=== PATIENT | female | born 1980 | race Caucasian/White ===

== ENCOUNTER → 2017-06-29 | Outpatient (REF) | payer OTHER | LOC: M LAB REF 18:42 | PROVIDERS: ATTEND Advanced Practice Midwife | DX: Z12.4 Encounter for screening for malignant neoplasm of cervix (principal); R87.610 Atypical squamous cells of undetermined significance on cytologic smear of cervix (ASC-US) ==

== ENCOUNTER → 2017-07-03 | Outpatient (CLI) | payer OTHER ==
--- NOTE | 2017-07-04 07:12 | REP ---
PELVIC ULTRASOUND: CLINICAL: Pelvic pain. TECHNIQUE: Transabdominal pelvic ultrasound followed by transvaginal examination for better evaluation of the endometrium and adnexa. COMPARISON: 05/06/2014. FINDINGS: The bladder is unremarkable and measures 9.2 x 7.8 x 13.7 cm. Heterogeneous anteverted uterus measures 6.9 x 3.0 x 3.8 cm. The endometrial complex measures 8.4 mm thickness. Anterior subserosal fibroid is identified measuring 9 mm maximal diameter. Small subcentimeter myometrial cysts are identified and nonspecific/incidental. The bilateral ovaries are normal in appearance and vascularity without torsion. Right ovary measures 3.2 x 1.9 x 2.6 cm; RI equals 0.65. Left ovary measures 2.6 x 1.3 x 2.0 cm; RI equals 0.57. No pelvic fluid or adnexa mass lesions. IMPRESSION: Essentially normal pelvic ultrasound. Anterior subserosal fibroid is identified measuring 9 mm maximal diameter. Signed by Stanley Terrell MD 07/07/2017 06:42 A
== END ==
LOC: M SMT 12:59
PROVIDERS: ATTEND Advanced Practice Midwife
DX: R10.2 Pelvic and perineal pain (principal)

== ENCOUNTER → 2017-07-04 | Outpatient (CLI) | payer OTHER ==
[2017-07-04 14:22] LABS: BASO # 0.1 10^3/uL (0.0-0.2); BASO % 0.6 % (0.0-1.0); EOS # 0.2 10^3/uL (0.0-0.50); EOS % 2.7 % (0.0-3.0); IMMATURE GRANULOCYTE % 0.4 % (0-0); LYMPH # 3.3 10^3/uL (1.5-4.5); LYMPH % 39.1 % (24.0-44.0); MEAN CORPUSCULAR HGB CONC 33.1 g/dl (32.0-36.5); MEAN CORPUSCULAR VOLUME 90.7 fl (80.0-96.0); MONO # 0.6 10^3/uL (0.0-0.8); MONO % 7.6 % (0.0-5.0); NEUTROPHILS # 4.2 10^3/uL (1.8-7.7); NEUTROPHILS % 49.6 % (36.0-66.0); PLATELET COUNT, AUTOMATED 331 10^3/uL (150-450); RED CELL DISTRIBUTION WIDTH 13.1 % (11.5-14.5)
[2017-07-04 14:40] LABS: FOLLICLE STIMULATING HORMONE 5.9 mIU/mL; LUTEINIZING HORMONE 3.2 mIU/mL
[2017-07-04 14:59] LABS: THYROXINE (T4) 10.1 UG/DL (4.5-12.0)
[2017-07-05 08:22] LABS: WHITE BLOOD COUNT 8.4 10^3/uL (4.0-10.0)
[2017-07-07 14:14] LABS: INSULIN FREE 17 uU/mL (.)
== END ==
LOC: M SMT 08:31
PROVIDERS: ATTEND Advanced Practice Midwife
DX: R63.5 Abnormal weight gain (principal); R53.83 Other fatigue

== ENCOUNTER → 2017-07-28 | Outpatient (REF) | payer OTHER | LOC: M SFHCADAM 09:46 | DX: Z92.29 Personal history of other drug therapy (principal) ==

== ENCOUNTER → 2017-08-02 | Outpatient (CLI) | payer OTHER | LOC: M EKG 13:37 | DX: F41.9 Anxiety disorder, unspecified (principal) | CPT/HCPCS: 93005 ==

== ENCOUNTER → 2017-08-03 | Outpatient (REF) | payer OTHER ==
[2017-08-03 19:57] LABS: ESTIMATED AVERAGE GLUCOSE 114 MG/DL (60-110); HEMOGLOBIN A1c 5.6 %
[2017-08-03 20:04] LABS: ALBUMIN 3.7 GM/DL (3.2-5.2); ALBUMIN/GLOBULIN RATIO 1.09 (1.00-1.93); ALKALINE PHOSPHATASE 67 U/L (45-117); ALT/SGPT 35 U/L (12-78); ANION GAP 6 MEQ/L (8-16); AST/SGOT 16 U/L (7-37); BILIRUBIN,TOTAL 0.3 MG/DL (0.2-1.0); BLOOD UREA NITROGEN 15 MG/DL (7-18); CARBON DIOXIDE LEVEL 28 MEQ/L (21-32); CHLORIDE LEVEL 104 MEQ/L (98-107); CREATININE FOR GFR 0.67 MG/DL (0.55-1.02); GLOMERULAR FILTRATION RATE > 60.0 (>60); GLUCOSE, FASTING 89 MG/DL (70-105); POTASSIUM SERUM 4.5 MEQ/L (3.5-5.1); SODIUM LEVEL 138 MEQ/L (136-145); TOTAL PROTEIN 7.1 GM/DL (6.4-8.2)
== END ==
LOC: M SFHCADAM 15:35
DX: R53.82 Chronic fatigue, unspecified (principal); R73.01 Impaired fasting glucose

== ENCOUNTER → 2018-02-05 | Outpatient (CLI) | payer OTHER | LOC: M RAD 09:31 | DX: R22.9 Localized swelling, mass and lump, unspecified (principal) | CPT/HCPCS: 76536 ==

== ENCOUNTER 2018-02-16 23:13 | Emergency (ER) | payer OTHER ==
[2018-02-17] MEDS: FUROSEMIDE 20 MG TAB PO (00:45)
== END 2018-02-17 01:39 | disposition home or self-care (01) ==
LOC: M ED 23:13
DX: R21 Rash and other nonspecific skin eruption (principal); R60.0 Localized edema; Z87.891 Personal history of nicotine dependence; Z88.0 Allergy status to penicillin; Z88.8 Allergy status to other drugs, medicaments and biological substances
CPT/HCPCS: 99283

== ENCOUNTER 2018-09-17 07:27 | Day surgery (SDC) | payer OTHER ==
[~2018-09-17] VITALS: Ht 165.1 cm; Wt 96.2 kg
[2018-09-17 07:27] LABS: HEMATOCRIT 39.1 % (36.0-47.0); HEMOGLOBIN 13.2 g/dl (12.0-15.5); MEAN CORPUSCULAR HEMOGLOBIN 29.5 pg (27.0-33.0); MEAN CORPUSCULAR HGB CONC 33.8 g/dl (32.0-36.5); MEAN CORPUSCULAR VOLUME 87.3 fl (80.0-96.0); PLATELET COUNT, AUTOMATED 295 10^3/uL (150-450); RED BLOOD COUNT 4.48 10^6/uL (4.00-5.40); WHITE BLOOD COUNT 6.9 10^3/uL (4.0-10.0)
[~2018-09-17 07:27] MED LIST: BUPIVACAINE HCL 0.25% 10 ML VIAL As Ordered ONE; IBUP80TA PO; LASI20TA3 PO; LIDOCAINE 2% INJ 100 MG/5 ML SDV (FOR ANES.) As Ordered ONE; METHYLENE BLUE 0.5% (5MG/ML) 10 ML AMP (PROVAYBLUE)(Q9968 PER 1MG) As Ordered ONE; METOCLOPRAMIDE INJ 10MG/2ML VIAL (J2765) As Ordered ONE; MIDAZOLAM INJ 2 MG/2 ML VIAL (J2250) As Ordered ONE; ONDANSETRON 4MG/2ML VIAL (J2405) As Ordered ONE; PROPOFOL 200 MG/20 ML VIAL As Ordered ONE; ROCURONIUM BROMIDE 50 MG/5 ML VIAL As Ordered ONE; ZYRTTAB8 PO; ceFAZolin 2 GM/D5W 50 ML IV BAG (J0690 PER 500MG) As Ordered ONE; fentaNYL 100 MCG/2 ML INJECTION (J3010) As Ordered ONE
[2018-09-17] MEDS ORDERED: HYDROmorphone HCL 2 MG/ML 1ML VIAL (J1170) As Ordered ONE (07:52)
[2018-09-17] MEDS ORDERED: LR 1,000 ML IV ONE (08:00)
[2018-09-17] MEDS ORDERED: SUGAMMADEX SODIUM 500 MG/5 ML VIAL (BRIDION) As Ordered ONE (08:43)
[2018-09-17] MEDS ORDERED: dexameTHASONE 4 MG/ML 1ML VIAL (J1100) As Ordered ONE (08:43)
[2018-09-17] MEDS ORDERED: DOCUSATE SODIUM 100 MG CAP PO SCH (09:00)
[2018-09-17] MEDS ORDERED: OXYC1TAB23 PO (09:09)
[2018-09-17] MEDS ORDERED: IBUP80TA PO (09:10)
[2018-09-17] MEDS: MEPERIDINE INJ 25 MG/ML VIAL (J2175) IV PRN ×2 (09:11→09:17)
[2018-09-17] MEDS ORDERED: MEPERIDINE INJ 25 MG/ML VIAL (J2175) As Ordered ONE (09:11)
[2018-09-17] MEDS ORDERED: KETOROLAC 30 MG/ML VIAL (J1885) As Ordered ONE (09:19)
[2018-09-17] MEDS ORDERED: KETOROLAC 30 MG/ML VIAL (J1885) IV PRN (09:30)
[2018-09-17] MEDS ORDERED: PERCOCET 5MG/325MG TAB PO PRN ×3 (09:30→10:00)
[2018-09-17] MEDS ORDERED: MORPHINE 4 MG/ML 1ML VIAL/SYRINGE (J2270) IV PRN (09:30)
[2018-09-17] MEDS ORDERED: fentaNYL 100 MCG/2 ML INJECTION (J3010) IV PRN (09:30)
[2018-09-17] MEDS ORDERED: LR 1,000 ML IV SCH ×2 (09:30)
[2018-09-17] MEDS ORDERED: ONDANSETRON 4MG/2ML VIAL (J2405) IV PRN ×2 (09:30)
[2018-09-17 14:00] VITALS: BP 123/60
--- NOTE | 2018-09-18 16:47 | RO ---
DATE OF PROCEDURE: 09/17/2018 PREPROCEDURE DIAGNOSES: Pelvic pain. POSTPROCEDURE DIAGNOSES: Pelvic pain. OPERATIVE PROCEDURES: Robotic assisted laparoscopic hysterectomy, cystoscopy. SURGEON: Jovany Marinelli MD COMMUNITY DEVELOPMENT OFFICER: Rashida Burrell NP ANESTHESIA: General endotracheal. ESTIMATED BLOOD LOSS: 100 mL. URINE OUTPUT: 200 mL. FINDINGS: Normal appearing uterus. Fallopian tubes with evidence of tubal sterilization with Filshie clips in place. Normal ovaries. Normal upper abdomen. Evidence of endometrial ablation with obliterated endometrial cavity. DESCRIPTION OF PROCEDURE: The patient was taken to the operating room where general endotracheal anesthesia was induced. She was prepped and draped in a sterile fashion in the dorsal lithotomy position. A Sotelo catheter was placed and a VCare uterine manipulator was placed. A periumbilical incision was made with a scalpel. A Veress needle was placed through this incision while tenting up on the skin of the abdomen. Intraabdominal location of the Veress needle was assessed with the use of saline filled syringe. A pneumoperitoneum was created. The Veress needle was removed. An 11 mm trocar using Haileo was inserted through this incision. Three 8 mm suprapubic ports were placed under direct visualization. The patient was placed in Trendelenburg position. The Da Valentina surgical robot was docked to the ports. Using the fenestrated bipolar instrument and Vessel Sealer, the uteroovarian ligaments, fallopian tubes and round ligaments were coagulated and incised. The anterior and posterior leaves of the broad ligament were . A bladder flap was created. The Vessel Sealer was removed and the Endo Glenna were then utilized. The uterine vessels were coagulated and incised. Colpotomy was created to the level of the VCare cup and extended circumferentially around the upper vagina. Specimen including the uterus and cervix and parts of the fallopian tube were removed. Vaginal cuff was closed with #0 V-Loc suture in a running fashion. The pelvis was irrigated with good hemostasis noted. All instruments were removed. The patient received methylene blue dye intravenously. Cystoscopy was performed using a 70 degrees cystoscope. Bilateral ureteral jets were iidentified. There was no evidence of injury to the bladder. All instruments were removed. Skin was closed with #4-0 Monocryl subcuticular sutures. Sponge, instrument and needle counts were correct. Rashida Burrell NP assisted in all aspects of the procedure from beginning to end. She positioned the patient and helped with insertion of the ports. She manipulated the uterus throughout the procedure as well as removed the specimen at the end of the procedure. She subsequently closed the ports and helped move the patient.
== END 2018-09-17 14:34 | disposition home or self-care (01) ==
LOC: M SDC 07:27
PROVIDERS: ATTEND Specialist
DX: R10.2 Pelvic and perineal pain (principal); N72 Inflammatory disease of cervix uteri; J45.909 Unspecified asthma, uncomplicated; Z87.891 Personal history of nicotine dependence; Z88.0 Allergy status to penicillin; Z79.899 Other long term (current) drug therapy; F41.9 Anxiety disorder, unspecified
CPT/HCPCS: 58570; 85027; 86850; 86900; 86901; 88307; J0690; J1100; J1170; J1885; J2175; J2250; J2405; J2765; J3010; Q9968

== ENCOUNTER → 2019-08-28 | Outpatient (REF) | payer OTHER ==
[~2019-08-28] MED LIST changes: -BUPIVACAINE HCL 0.25% 10 ML VIAL As Ordered ONE; -LIDOCAINE 2% INJ 100 MG/5 ML SDV (FOR ANES.) As Ordered ONE; -METHYLENE BLUE 0.5% (5MG/ML) 10 ML AMP (PROVAYBLUE)(Q9968 PER 1MG) As Ordered ONE; -METOCLOPRAMIDE INJ 10MG/2ML VIAL (J2765) As Ordered ONE; -MIDAZOLAM INJ 2 MG/2 ML VIAL (J2250) As Ordered ONE; -ONDANSETRON 4MG/2ML VIAL (J2405) As Ordered ONE; +OXYC1TAB23 PO; -PROPOFOL 200 MG/20 ML VIAL As Ordered ONE; -ROCURONIUM BROMIDE 50 MG/5 ML VIAL As Ordered ONE; -ceFAZolin 2 GM/D5W 50 ML IV BAG (J0690 PER 500MG) As Ordered ONE; -fentaNYL 100 MCG/2 ML INJECTION (J3010) As Ordered ONE
[2019-08-28 16:49] LABS: ALBUMIN 3.6 GM/DL (3.2-5.2); ALT/SGPT 26 U/L (12-78); BILIRUBIN,TOTAL 0.3 MG/DL (0.2-1.0); BLOOD UREA NITROGEN 18 MG/DL (7-18); CALCIUM LEVEL 9.1 MG/DL (8.5-10.1); CARBON DIOXIDE LEVEL 26 MEQ/L (21-32); CHLORIDE LEVEL 104 MEQ/L (98-107); GLOMERULAR FILTRATION RATE > 60.0 (>60); GLUCOSE, FASTING 81 MG/DL (70-100); POTASSIUM SERUM 4.1 MEQ/L (3.5-5.1); SODIUM LEVEL 138 MEQ/L (136-145); THYROID STIMULATING HORMONE 0.008 uIU/ML (0.358-3.740); TOTAL PROTEIN 6.9 GM/DL (6.4-8.2)
== END ==
LOC: M SFHCADAM 14:57
PROVIDERS: ATTEND Family Medicine
DX: R53.82 Chronic fatigue, unspecified (principal)

== ENCOUNTER → 2019-11-01 | Outpatient (REF) | payer OTHER ==
[2019-11-01 17:18] LABS: FREE T4 1.07 NG/DL (0.76-1.46); THYROID STIMULATING HORMONE 0.025 uIU/ML (0.358-3.740)
== END ==
LOC: M SFHCADAM 13:05
PROVIDERS: ATTEND Family Medicine
DX: R79.89 Other specified abnormal findings of blood chemistry (principal)

== ENCOUNTER → 2019-12-03 | Outpatient (CLI) | payer OTHER ==
--- NOTE | 2019-12-04 05:32 | REP ---
Clinical: Hyperthyroidism. Technique: Real time garzon scale and color evaluation using linear high frequency and curved array transducers. Comparison: None. Findings: The thyroid gland is enlarged and diffusely heterogeneous with multiple nonspecific complex cysts and nodules most compatible with multinodular goiter. Isthmus measures approximately 3.4 mm in width. Right lobe measures 6.0 x 2.2 x 2.1 cm and includes mid pole complex nodule measuring 1.4 x 1.4 x 0.9 cm, lower pole cyst measuring 1.0 x 1.0 x 0.9 cm, and lower pole complex nodule measuring 1.6 x 1.0 x 0.8 cm. Smaller less well defined hypoechoic nodules are also identified. Left lobe measures 5.1 x 1.9 x 2.0 cm and includes 0.9 x 0.7 x 0.7 cm complex mid pole nodule, 1.1 x 0.9 x 0.8 cm complex mid pole nodule, and 0.7 x 0.7 x 0.5 cm complex lower pole nodule. Smaller less well defined hypoechoic nodules are also identified. Impression: Findings compatible with multinodular goiter. Multiple nonspecific complex bilateral nodules noted.
== END ==
LOC: M WHC 09:59
PROVIDERS: ATTEND Family Medicine
DX: E05.00 Thyrotoxicosis with diffuse goiter without thyrotoxic crisis or storm (principal)

== ENCOUNTER → 2020-02-04 | Outpatient (CLI) | payer OTHER ==
--- NOTE | 2020-02-05 12:48 | REP ---
REASON FOR EXAM: Hyperthyroidism and history of thyroid nodule. The ultrasound examination of 12/03/2019 showed evidence of multinodular goiter. After the oral administration of 430 microcuries of radial iodide 123, a thyroid scan and uptake was performed. The thyroid scintiscan shows rather symmetric appearing radial iodide uptake throughout the thyroid gland with no definite evidence of a cold or hot nodule. There is some scintigraphic evidence of enlargement of the right lobe of the thyroid gland and prominence/mild enlargement of the left lobe. This correlates with the ultrasonographic findings of mild thyromegaly. The 2-hour uptake is 5.39%, which is slightly below the normal range of 6-12%. The 24-hour uptake is 15.84%, which is below the normal range of 25-35%. IMPRESSION: Findings as described above. Electronically Signed by Santiago Watkins DO 02/05/2020 05:20 P
== END ==
LOC: M RAD 10:26
PROVIDERS: ATTEND Family Medicine
DX: E04.9 Nontoxic goiter, unspecified (principal); E05.90 Thyrotoxicosis, unspecified without thyrotoxic crisis or storm
CPT/HCPCS: 78012; A9516

== ENCOUNTER → 2020-02-05 | Outpatient (CLI) | payer OTHER | LOC: M RAD 11:00 | PROVIDERS: ATTEND Family Medicine | DX: Z53.9 Procedure and treatment not carried out, unspecified reason (principal); E04.9 Nontoxic goiter, unspecified; E05.90 Thyrotoxicosis, unspecified without thyrotoxic crisis or storm ==

== ENCOUNTER → 2020-02-07 | Outpatient (REF) | payer OTHER ==
[2020-02-07 18:10] LABS: FREE T4 1.04 NG/DL (0.76-1.46); THYROID STIMULATING HORMONE 0.017 uIU/ML (0.358-3.740)
== END ==
LOC: M SFHCADAM 15:08
PROVIDERS: ATTEND Family Medicine
DX: E05.90 Thyrotoxicosis, unspecified without thyrotoxic crisis or storm (principal); E04.9 Nontoxic goiter, unspecified

== ENCOUNTER → 2020-03-23 | Outpatient (REF) | payer OTHER ==
[2020-03-23 15:05] LABS: FREE T4 1.02 NG/DL (0.76-1.46); THYROGLOBULIN ANTIBODY < 15.0 U/ML (<60.0); THYROID PEROXIDASE ANTIBODY < 28.0 U/ML (<60.0); THYROID STIMULATING HORMONE 0.026 uIU/ML (0.358-3.740); TOTAL T3 185.8 NG/DL (60.0-181.0)
== END ==
LOC: M LABDRWAD 10:25
PROVIDERS: ATTEND Nurse Practitioner Family
DX: E05.00 Thyrotoxicosis with diffuse goiter without thyrotoxic crisis or storm (principal)

== ENCOUNTER → 2020-03-31 | Outpatient (REF) | payer OTHER | LOC: M LAB REF 09:45 | PROVIDERS: ATTEND Internal Medicine Endocrinology, Diabetes & Metabolism | DX: E04.2 Nontoxic multinodular goiter (principal) ==

== ENCOUNTER → 2020-06-08 | Outpatient (REF) | payer OTHER ==
[2020-06-08 17:20] LABS: FREE T3 3.7 PG/ML (2.2-4.0); FREE T4 0.98 NG/DL (0.76-1.46); THYROID STIMULATING HORMONE 0.013 uIU/ML (0.358-3.740)
== END ==
LOC: M LABDRWAD 16:07
PROVIDERS: ATTEND Internal Medicine Endocrinology, Diabetes & Metabolism
DX: E05.00 Thyrotoxicosis with diffuse goiter without thyrotoxic crisis or storm (principal)

== ENCOUNTER → 2020-08-22 | Outpatient (CLI) | payer SELFPAY | LOC: M LABSMTC 11:38 | PROVIDERS: ATTEND Pediatrics | DX: Z20.822 Contact with and (suspected) exposure to COVID-19 (principal) ==

== ENCOUNTER → 2020-11-27 | Outpatient (CLI) | payer OTHER ==
[2020-11-27 12:53] LABS: BASO % 0.5 % (0.0-1.0); EOS # 0.2 10^3/uL (0.0-0.5); EOS % 2.6 % (0.0-3.0); HEMATOCRIT 40.5 % (36.0-47.0); HEMOGLOBIN 13.4 g/dl (12.0-15.5); LYMPH # 3.2 10^3/uL (1.5-5.0); LYMPH % 39.3 % (24.0-44.0); MEAN CORPUSCULAR HEMOGLOBIN 29.2 pg (27.0-33.0); MEAN CORPUSCULAR HGB CONC 33.1 g/dl (32.0-36.5); MEAN CORPUSCULAR VOLUME 88.2 fl (80.0-96.0); MONO # 0.7 10^3/uL (0.0-0.8); MONO % 8.3 % (2.0-8.0); NEUTROPHILS % 49.1 % (36.0-66.0); PLATELET COUNT, AUTOMATED 315 10^3/uL (150-450); RED BLOOD COUNT 4.59 10^6/uL (4.00-5.40); WHITE BLOOD COUNT 8.2 10^3/uL (4.0-10.0)
[2020-11-27 13:24] LABS: FREE T4 0.98 NG/DL (0.76-1.46); IRON (FE) 51 UG/DL (50-170); THYROID STIMULATING HORMONE < 0.005 uIU/ML (0.358-3.740); TOTAL IRON BINDING CAPACITY 318 UG/DL (250-450)
[2020-11-27 13:25] LABS: FOLATE > 24.0 NG/ML; VITAMIN B12 LEVEL 665 PG/ML
[2020-12-01 06:08] LABS: IGASUB2 56.5 mg/dL (73.2-301.2); IGASUB3 28.7 mg/dL (13.4-97.9); IgA SERUM (part of Subclasses) 72 mg/dL (87-352); TISSUE TRANSGLUTAMINASE IgA <2 U/mL (0-3)
== END ==
LOC: M LAB 11:36
PROVIDERS: ATTEND Internal Medicine Gastroenterology
DX: R19.7 Diarrhea, unspecified (principal)

== ENCOUNTER → 2021-01-18 | Outpatient (REF) | payer OTHER ==
[2021-01-18 18:35] LABS: BASO # 0.1 10^3/uL (0.0-0.2); BASO % 0.6 % (0.0-1.0); EOS # 0.2 10^3/uL (0.0-0.5); EOS % 2.5 % (0.0-3.0); HEMATOCRIT 41.2 % (36.0-47.0); HEMOGLOBIN 13.3 g/dl (12.0-15.5); LYMPH # 3.4 10^3/uL (1.5-5.0); LYMPH % 36.3 % (24.0-44.0); MEAN CORPUSCULAR HEMOGLOBIN 28.4 pg (27.0-33.0); MEAN CORPUSCULAR HGB CONC 32.3 g/dl (32.0-36.5); MONO # 0.6 10^3/uL (0.0-0.8); MONO % 6.4 % (2.0-8.0); NEUTROPHILS % 53.9 % (36.0-66.0); PLATELET COUNT, AUTOMATED 306 10^3/uL (150-450); RED BLOOD COUNT 4.68 10^6/uL (4.00-5.40); WHITE BLOOD COUNT 9.3 10^3/uL (4.0-10.0)
[2021-01-18 18:45] LABS: ALBUMIN 3.5 GM/DL (3.2-5.2); ALT/SGPT 33 U/L (12-78); BILIRUBIN,TOTAL 0.2 MG/DL (0.2-1.0); BLOOD UREA NITROGEN 14 MG/DL (7-18); CALCIUM LEVEL 9.2 MG/DL (8.5-10.1); CARBON DIOXIDE LEVEL 28 MEQ/L (21-32); CHLORIDE LEVEL 104 MEQ/L (98-107); CREATININE FOR GFR 0.72 MG/DL (0.55-1.30); FREE T4 0.93 NG/DL (0.76-1.46); GLOMERULAR FILTRATION RATE > 60.0 (>60); GLUCOSE, FASTING 111 MG/DL (70-100); POTASSIUM SERUM 4.2 MEQ/L (3.5-5.1); SODIUM LEVEL 138 MEQ/L (136-145); THYROID STIMULATING HORMONE < 0.005 uIU/ML (0.358-3.740); TOTAL PROTEIN 6.8 GM/DL (6.4-8.2)
[2021-01-18 19:57] LABS: HEMOGLOBIN A1c 5.8 %
== END ==
LOC: M SFHCADAM 15:29
PROVIDERS: ATTEND Family Medicine
DX: E66.9 Obesity, unspecified (principal); R53.83 Other fatigue

== ENCOUNTER → 2021-03-12 | Outpatient (REF) | payer OTHER ==
[2021-03-12 13:34] LABS: FREE T4 0.91 NG/DL (0.76-1.46); THYROID STIMULATING HORMONE < 0.005 uIU/ML (0.358-3.740)
== END ==
LOC: M LABDRWAD 12:36
PROVIDERS: ATTEND Internal Medicine Endocrinology, Diabetes & Metabolism
DX: E05.00 Thyrotoxicosis with diffuse goiter without thyrotoxic crisis or storm (principal)

== ENCOUNTER → 2021-05-06 | Outpatient (CLI) | payer OTHER ==
--- NOTE | 2021-05-06 11:58 | REP ---
INDICATION: LESION OF ULNAR NERVE. COMPARISON: None. TECHNIQUE: AP and lateral only FINDINGS: There is no evidence of a joint effusion fracture, dislocation, or subluxation on this limited two view exam. IMPRESSION: No osseous abnormality is identified. <Electronically signed by Santiago Watkins > 05/06/21 [id number]
== END ==
LOC: M SOG 11:00
PROVIDERS: ATTEND Orthopaedic Surgery Sports Medicine
DX: G56.22 Lesion of ulnar nerve, left upper limb (principal)

== ENCOUNTER → 2021-05-07 | Outpatient (REF) | payer OTHER | LOC: M SFHCADAM 17:01 | PROVIDERS: ATTEND Family Medicine | DX: J06.9 Acute upper respiratory infection, unspecified (principal) ==

== ENCOUNTER → 2021-05-22 | Outpatient (CLI) | payer OTHER | LOC: M LABSMTC 11:01 | PROVIDERS: ATTEND Surgery | DX: Z01.812 Encounter for preprocedural laboratory examination (principal); E05.90 Thyrotoxicosis, unspecified without thyrotoxic crisis or storm; Z11.52 Encounter for screening for COVID-19 ==

== ENCOUNTER → 2021-06-21 | Outpatient (REF) | payer OTHER ==
[2021-06-21 13:55] LABS: FREE T4 1.26 NG/DL (0.76-1.46); THYROID STIMULATING HORMONE 0.07 uIU/ML (0.358-3.740)
== END ==
LOC: M LABDRWAD 12:28
PROVIDERS: ATTEND Internal Medicine Endocrinology, Diabetes & Metabolism
DX: E89.0 Postprocedural hypothyroidism (principal)

== ENCOUNTER → 2021-08-02 | Outpatient (REF) | payer OTHER ==
[2021-08-02 13:26] LABS: HEMOGLOBIN A1c 5.9 %
[2021-08-02 13:45] LABS: FREE T4 1.19 NG/DL (0.76-1.46); THYROID STIMULATING HORMONE 0.535 uIU/ML (0.358-3.740)
== END ==
LOC: M SFHCADAM 10:32
PROVIDERS: ATTEND Family Medicine
DX: R73.03 Prediabetes (principal); E89.0 Postprocedural hypothyroidism

== ENCOUNTER → 2021-10-11 | Outpatient (CLI) | payer OTHER | LOC: M WHC 10:14 | PROVIDERS: ATTEND Specialist | DX: R10.2 Pelvic and perineal pain (principal) ==

== ENCOUNTER → 2021-11-25 | Outpatient (REF) | payer OTHER ==
[2021-11-25 17:17] LABS: FREE T4 1.17 NG/DL (0.76-1.46); THYROID STIMULATING HORMONE 0.124 uIU/ML (0.358-3.740)
== END ==
LOC: M SFHCPLAZ 13:53
PROVIDERS: ATTEND Family Medicine
DX: E89.0 Postprocedural hypothyroidism (principal)

== ENCOUNTER → 2022-01-03 | Outpatient (REF) | payer OTHER ==
[2022-01-03 16:35] LABS: FREE T4 1.03 NG/DL (0.76-1.46); THYROID STIMULATING HORMONE 0.627 uIU/ML (0.358-3.740)
[2022-01-03 17:59] LABS: HEMOGLOBIN A1c 5.8 %
== END ==
LOC: M SFHCADAM 14:30
PROVIDERS: ATTEND Family Medicine
DX: E89.0 Postprocedural hypothyroidism (principal); R73.03 Prediabetes

== ENCOUNTER → 2022-05-10 | Outpatient (REF) | payer OTHER | LOC: M LAB REF 16:05 | PROVIDERS: ATTEND Surgery | DX: D17.22 Benign lipomatous neoplasm of skin and subcutaneous tissue of left arm (principal) ==

== ENCOUNTER → 2022-06-14 | Outpatient (REF) | payer OTHER ==
[2022-06-14 17:22] LABS: ALBUMIN 3.7 G/DL (3.2-5.2); ALT/SGPT 22 U/L (7.0-40); BILIRUBIN,TOTAL 0.2 MG/DL (0.3-1.2); BLOOD UREA NITROGEN 15 MG/DL (9-23); CARBON DIOXIDE LEVEL 26 MMOL/L (20-31); CHLORIDE LEVEL 100 MMOL/L (98-107); CREATININE FOR GFR 0.69 MG/DL (0.55-1.30); GLOMERULAR FILTRATION RATE > 60.0 (>58); GLUCOSE, FASTING 146 MG/DL (60-100); POTASSIUM SERUM 4.5 MMOL/L (3.5-5.1); SODIUM LEVEL 138 MMOL/L (136-145); TOTAL PROTEIN 6.7 G/DL
[2022-06-14 17:43] LABS: HEMOGLOBIN A1c 5.5 % (4.0-6.0)
== END ==
LOC: M SFHCADAM 08:56
PROVIDERS: ATTEND Family Medicine
DX: R73.03 Prediabetes (principal)

== ENCOUNTER → 2022-07-08 | Outpatient (REF) | payer OTHER ==
[2022-07-08 17:32] LABS: HEMATOCRIT 37.4 % (36.0-47.0); HEMOGLOBIN 12.3 g/dl (12.0-15.5); MEAN CORPUSCULAR HEMOGLOBIN 29.6 pg (27.0-33.0); MEAN CORPUSCULAR HGB CONC 32.9 g/dl (32.0-36.5); MEAN CORPUSCULAR VOLUME 90.1 fl (80.0-96.0); PLATELET COUNT, AUTOMATED 315 10^3/uL (150-450); RED BLOOD COUNT 4.15 10^6/uL (4.00-5.40); WHITE BLOOD COUNT 11.1 10^3/uL (4.0-10.0)
[2022-07-08 17:59] LABS: THYROID STIMULATING HORMONE 3.649 uIU/ML (0.55-4.78)
[2022-07-08 18:02] LABS: FREE T4 1.25 NG/DL (0.89-1.76)
[2022-07-08 18:16] LABS: ATYPICAL LYMPH 2 % (0-5); EOSINOPHILS 2 % (0-3); LYMPHOCYTES 33 % (16-44); MONOCYTES 6 % (0-5); NEUTROPHILS 57 % (28-66); PLATELET ESTIMATE NORMAL (NORMAL)
== END ==
LOC: M SFHCADAM 13:40
PROVIDERS: ATTEND Family Medicine
DX: E03.9 Hypothyroidism, unspecified (principal); R53.83 Other fatigue

== ENCOUNTER → 2022-12-06 | Outpatient (REF) | payer OTHER ==
[2022-12-06 13:37] LABS: THYROID STIMULATING HORMONE 6.189 uIU/ML (0.55-4.78)
[2022-12-06 13:38] LABS: ALBUMIN 3.4 G/DL (3.2-5.2); ALKALINE PHOSPHATASE 61 U/L (46-116); ALT/SGPT 23 U/L (7.0-40); AST/SGOT < 8 U/L (<34); BILIRUBIN,TOTAL 0.3 MG/DL (0.3-1.2); BLOOD UREA NITROGEN 16 MG/DL (9-23); CARBON DIOXIDE LEVEL 29 MMOL/L (20-31); CHLORIDE LEVEL 103 MMOL/L (98-107); CREATININE FOR GFR 0.75 MG/DL (0.55-1.30); GLOMERULAR FILTRATION RATE > 60.0 (>58); GLUCOSE, FASTING 100 MG/DL (60-100); POTASSIUM SERUM 4.2 MMOL/L (3.5-5.1); SODIUM LEVEL 138 MMOL/L (136-145); TOTAL PROTEIN 6.4 G/DL (5.7-8.2)
[2022-12-06 13:41] LABS: FREE T4 0.98 NG/DL (0.89-1.76)
[2022-12-06 13:44] LABS: HEMOGLOBIN A1c 5.5 % (4.0-6.0)
== END ==
LOC: M SFHCADAM 09:54
PROVIDERS: ATTEND Family Medicine
DX: E89.0 Postprocedural hypothyroidism (principal); R73.03 Prediabetes

== ENCOUNTER → 2023-01-16 | Outpatient (REF) | payer OTHER | LOC: M SFHCADAM 10:31 | PROVIDERS: ATTEND Family Medicine | DX: Z53.9 Procedure and treatment not carried out, unspecified reason (principal); E03.9 Hypothyroidism, unspecified ==

== ENCOUNTER → 2023-02-24 | Outpatient (REF) | payer OTHER ==
[2023-02-24 13:49] LABS: FREE T4 1.29 NG/DL (0.89-1.76)
[2023-02-24 13:50] LABS: THYROID STIMULATING HORMONE 0.945 uIU/ML (0.55-4.78)
== END ==
LOC: M SFHCADAM 08:51
PROVIDERS: ATTEND Family Medicine
DX: E03.9 Hypothyroidism, unspecified (principal)

== ENCOUNTER → 2023-06-07 | Outpatient (REF) | payer OTHER | LOC: M SFHCDERM 18:18 | PROVIDERS: ATTEND Nurse Practitioner Family | DX: L91.0 Hypertrophic scar (principal); D23.71 Other benign neoplasm of skin of right lower limb, including hip ==

== ENCOUNTER → 2023-12-01 | Outpatient (REF) | payer OTHER ==
[2023-12-01 12:55] LABS: BASO # 0.1 10^3/uL (0.0-0.2); BASO % 0.9 % (0.0-1.0); EOS # 0.3 10^3/uL (0.0-0.5); EOS % 4.2 % (0.0-3.0); HEMATOCRIT 38.2 % (36.0-47.0); HEMOGLOBIN 12.6 g/dl (12.0-15.5); LYMPH # 3.3 10^3/uL (1.5-5.0); LYMPH % 41.9 % (24.0-44.0); MEAN CORPUSCULAR HEMOGLOBIN 29.9 pg (27.0-33.0); MEAN CORPUSCULAR VOLUME 90.7 fl (80.0-96.0); MONO # 0.5 10^3/uL (0.0-0.8); MONO % 6.9 % (2.0-8.0); NEUTROPHILS # 3.6 10^3/uL (1.5-8.5); NEUTROPHILS % 45.8 % (36.0-66.0); PLATELET COUNT, AUTOMATED 389 10^3/uL (150-450); RED BLOOD COUNT 4.21 10^6/uL (4.00-5.40); WHITE BLOOD COUNT 7.9 10^3/uL (4.0-10.0)
[2023-12-01 13:25] LABS: ALBUMIN 3.7 G/DL (3.2-5.2); ALKALINE PHOSPHATASE 68 U/L (46-116); ALT/SGPT 30 U/L (7.0-40); AST/SGOT 18 U/L (<34); BILIRUBIN,TOTAL 0.3 MG/DL (0.3-1.2); BLOOD UREA NITROGEN 15 MG/DL (9-23); CALCIUM LEVEL 8.9 MG/DL (8.5-10.1); CARBON DIOXIDE LEVEL 28 MMOL/L (20-31); CHLORIDE LEVEL 101 MMOL/L (98-107); CHOLESTEROL LEVEL 251 MG/DL (<200); CHOLESTEROL RISK RATIO 5.08 (<5); CREATININE FOR GFR 0.76 MG/DL (0.55-1.30); GLOMERULAR FILTRATION RATE > 60.0 (>58); GLUCOSE, FASTING 97 MG/DL (60-100); HDL CHOLESTEROL 49.4 MG/DL (>40); LDL CHOLESTEROL 123.4 MG/DL (<100); NON-HDL-C 201.6 MG/DL; POTASSIUM SERUM 4.4 MMOL/L (3.5-5.1); SODIUM LEVEL 137 MMOL/L (136-145); THYROID STIMULATING HORMONE 1.172 uIU/ML (0.55-4.78); TOTAL PROTEIN 6.6 G/DL (5.7-8.2); TRIGLYCERIDES LEVEL 391 MG/DL (<150)
[2023-12-01 13:27] LABS: FREE T4 1.29 NG/DL (0.89-1.76)
== END ==
LOC: M SFHCADAM 10:41
PROVIDERS: ATTEND Family Medicine
DX: Z00.00 Encounter for general adult medical examination without abnormal findings (principal)

== ENCOUNTER → 2023-12-05 | Outpatient (REF) | payer OTHER | LOC: M SFHCADAM 10:17 | PROVIDERS: ATTEND Family Medicine | DX: E78.2 Mixed hyperlipidemia (principal) ==

== ENCOUNTER → 2024-05-21 | Outpatient (REF) | payer OTHER ==
[2024-05-21 19:59] LABS: FREE T4 1.43 NG/DL (0.89-1.76); THYROID STIMULATING HORMONE 3.899 uIU/ML (0.55-4.78)
== END ==
LOC: M SFHCADAM 11:15
PROVIDERS: ATTEND Family Medicine
DX: E89.0 Postprocedural hypothyroidism (principal)

== ENCOUNTER → 2024-05-31 | Outpatient (REF) | payer OTHER ==
[2024-05-31 17:20] LABS: BASO # 0.1 10^3/uL (0.0-0.2); BASO % 0.5 % (0.0-1.0); EOS # 0.5 10^3/uL (0.0-0.5); HEMATOCRIT 40.6 % (36.0-47.0); HEMOGLOBIN 13.3 g/dl (12.0-15.5); LYMPH # 3.8 10^3/uL (1.5-5.0); LYMPH % 41.8 % (24.0-44.0); MEAN CORPUSCULAR HGB CONC 32.8 g/dl (32.0-36.5); MEAN CORPUSCULAR VOLUME 91.6 fl (80.0-96.0); MONO # 0.5 10^3/uL (0.0-0.8); MONO % 5.2 % (2.0-8.0); NEUTROPHILS # 4.3 10^3/uL (1.5-8.5); NEUTROPHILS % 47.2 % (36.0-66.0); PLATELET COUNT, AUTOMATED 353 10^3/uL (150-450); RED BLOOD COUNT 4.43 10^6/uL (4.00-5.40); WHITE BLOOD COUNT 9.2 10^3/uL (4.0-10.0)
[2024-05-31 17:25] LABS: ALBUMIN 3.8 G/DL (3.2-5.2); ALKALINE PHOSPHATASE 66 U/L (35-104); ALT/SGPT 29 U/L (7.0-40); AST/SGOT 15 U/L (<34); BILIRUBIN,TOTAL 0.2 MG/DL (0.3-1.2); BLOOD UREA NITROGEN 17 MG/DL (9-23); CALCIUM LEVEL 9.7 MG/DL (8.5-10.1); CARBON DIOXIDE LEVEL 29 MMOL/L (20-31); CHLORIDE LEVEL 103 MMOL/L (98-107); CHOLESTEROL LEVEL 279 MG/DL (<200); CHOLESTEROL RISK RATIO 5.13 (<5); CREATININE FOR GFR 0.74 MG/DL (0.55-1.30); GLOMERULAR FILTRATION RATE > 60.0 (>58); GLUCOSE, FASTING 144 MG/DL (60-100); HDL CHOLESTEROL 54.3 MG/DL (>40); NON-HDL-C 224.7 MG/DL; POTASSIUM SERUM 3.9 MMOL/L (3.5-5.1); SODIUM LEVEL 140 MMOL/L (136-145); TOTAL PROTEIN 7.1 G/DL (5.7-8.2); TRIGLYCERIDES LEVEL 559 MG/DL (<150)
[2024-05-31 17:34] LABS: THYROID STIMULATING HORMONE 2.547 uIU/ML (0.55-4.78)
== END ==
LOC: M SFHCADAM 13:33
PROVIDERS: ATTEND Family Medicine
DX: Z00.00 Encounter for general adult medical examination without abnormal findings (principal)

== ENCOUNTER → 2024-06-06 | Outpatient (CLI) | payer OTHER | LOC: M WHC 10:22 | PROVIDERS: ATTEND Family Medicine | DX: Z12.31 Encounter for screening mammogram for malignant neoplasm of breast (principal); R92.323 Mammographic fibroglandular density, bilateral breasts ==

== ENCOUNTER → 2024-07-02 | Outpatient (CLI) | payer OTHER | LOC: M WHC 13:32 | PROVIDERS: ATTEND Family Medicine | DX: R92.8 Other abnormal and inconclusive findings on diagnostic imaging of breast (principal) ==

== ENCOUNTER → 2024-07-12 | Outpatient (REF) | payer OTHER ==
[2024-07-12 13:52] LABS: FREE T4 1.27 NG/DL (0.89-1.76); THYROID STIMULATING HORMONE 0.9 uIU/ML (0.55-4.78)
[2024-07-12 13:53] LABS: FOLLICLE STIMULATING HORMONE 3.6 mIU/ML
== END ==
LOC: M SFHCADAM 09:37
PROVIDERS: ATTEND Physician Assistant
DX: R23.2 Flushing (principal)

== ENCOUNTER → 2024-07-18 | Outpatient (CLI) | payer OTHER ==
[2024-07-18 07:34] VITALS: TEMP 98.9
[2024-07-18 13:12] VITALS: BP 126/88; O2SAT 100
== END ==
LOC: M WHCPRO 07:23
PROVIDERS: ATTEND Family Medicine
DX: R92.8 Other abnormal and inconclusive findings on diagnostic imaging of breast (principal); N63.11 Unspecified lump in the right breast, upper outer quadrant

== ENCOUNTER → 2024-10-22 | Outpatient (REF) | payer OTHER ==
[2024-10-22 15:15] LABS: BASO # 0.1 10^3/uL (0.0-0.2); BASO % 0.8 % (0.0-1.0); EOS # 0.5 10^3/uL (0.0-0.5); EOS % 5.5 % (0.0-3.0); HEMATOCRIT 41.8 % (36.0-47.0); HEMOGLOBIN 13.5 g/dl (12.0-15.5); LYMPH # 3.7 10^3/uL (1.5-5.0); LYMPH % 44.3 % (24.0-44.0); MEAN CORPUSCULAR HEMOGLOBIN 29.3 pg (27.0-33.0); MEAN CORPUSCULAR HGB CONC 32.3 g/dl (32.0-36.5); MEAN CORPUSCULAR VOLUME 90.9 fl (80.0-96.0); MONO # 0.6 10^3/uL (0.0-0.8); MONO % 7.2 % (2.0-8.0); NEUTROPHILS # 3.5 10^3/uL (1.5-8.5); NEUTROPHILS % 41.7 % (36.0-66.0); PLATELET COUNT, AUTOMATED 357 10^3/uL (150-450); WHITE BLOOD COUNT 8.3 10^3/uL (4.0-10.0)
[2024-10-22 15:37] LABS: HEMOGLOBIN A1c 5.2 % (4.0-6.0)
[2024-10-22 15:41] LABS: FREE T4 1.41 NG/DL (0.89-1.76)
[2024-10-22 15:44] LABS: ALBUMIN 3.7 G/DL (3.2-5.2); ALKALINE PHOSPHATASE 68 U/L (35-104); ALT/SGPT 26 U/L (7.0-40); AST/SGOT 14 U/L (<34); BILIRUBIN,TOTAL 0.3 MG/DL (0.3-1.2); BLOOD UREA NITROGEN 13 MG/DL (9-23); CALCIUM LEVEL 9.4 MG/DL (8.5-10.1); CARBON DIOXIDE LEVEL 30 MMOL/L (20-31); CHLORIDE LEVEL 103 MMOL/L (98-107); CHOLESTEROL LEVEL 244 MG/DL (<200); CHOLESTEROL RISK RATIO 5.05 (<5); CREATININE FOR GFR 0.73 MG/DL (0.55-1.30); GLOMERULAR FILTRATION RATE > 60.0 (>58); GLUCOSE, FASTING 93 MG/DL (60-100); HDL CHOLESTEROL 48.3 MG/DL (>40); NON-HDL-C 195.7 MG/DL; POTASSIUM SERUM 4.4 MMOL/L (3.5-5.1); SODIUM LEVEL 140 MMOL/L (136-145); THYROID STIMULATING HORMONE 0.436 uIU/ML (0.55-4.78); TOTAL PROTEIN 6.9 G/DL (5.7-8.2); TRIGLYCERIDES LEVEL 489 MG/DL (<150)
== END ==
LOC: M SFHCADAM 08:36
PROVIDERS: ATTEND Physician Assistant
DX: E66.9 Obesity, unspecified (principal); E66.09 Other obesity due to excess calories; E03.9 Hypothyroidism, unspecified; N63.10 Unspecified lump in the right breast, unspecified quadrant; E78.2 Mixed hyperlipidemia

== ENCOUNTER → 2025-05-14 | Outpatient (REF) | payer OTHER ==
[2025-05-14 18:44] LABS: FREE T4 1.48 NG/DL (0.89-1.76)
== END ==
LOC: M SFHCADAM 14:15
PROVIDERS: ATTEND Physician Assistant
DX: E03.9 Hypothyroidism, unspecified (principal)